=== PATIENT | male | born 1970 | race Caucasian/White ===

== ENCOUNTER 2017-05-07 23:00 | Emergency (ER) | payer OTHER ==
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
== END 2017-05-07 23:18 | disposition disaster alternative care site (69) ==
LOC: GACC 23:00
DX: S69.91XA Unspecified injury of right wrist, hand and finger(s), initial encounter (principal); I25.2 Old myocardial infarction; Z95.1 Presence of aortocoronary bypass graft; Y04.0XXA Assault by unarmed brawl or fight, initial encounter